=== PATIENT | female | born 1990 | race African-American/Black ===

== ENCOUNTER 2017-02-15 11:08 | Emergency (ER) | payer OTHER ==
--- NOTE | ~2017-02-15 | CT4 ---
[facility] A Service of [facility] RADIOLOGY TEXT RESULTS PATIENT: IRENE HODGE LOCATION: SED : [birth year] UNIT #: [id number] AGE: [address]: Kelli Gagnon MD SEX: F ORDER DR: [id number] [place] [id number] E MR#: [id number] #: [id number] NAME: IRENE HODGE : 1990 SEX: F STUDY DATE/TIME: 02/15/2017 12:42 UNIT: SED ROOM: STUDY DESCRIPTION: CT Abd and Pelv Wo Cont Attending Physician: Kelli Gagnon M.D. Ordering Physician: Kelli Gagnon M.D. Primary Care Physician: No Primary Care Physician MEDICAL IMAGING REPORT This report is preliminary unless electronic signature is present. EXAM CT abdomen and pelvis, noncontrast, kidney stone protocol, 02/15/2017 HISTORY 26-year-old female in the ED complaining of 2-day history of right lower quadrant abdomen pain. TECHNIQUE CT examination of the abdomen and pelvis was performed without oral or IV contrast using kidney stone protocol. This CT exam was performed with one or more of the following radiation dose reduction techniques: automatic exposure control, adjustment of mA and/or kV according to patient size, and iterative reconstruction. FINDINGS ABDOMEN: No radiopaque stone material is seen within the kidneys, ureters, or urinary bladder. No evidence of urinary obstruction. Liver, pancreas and spleen are normal in size and appearance. Nondistended gallbladder. No bile duct dilatation. Small bowel and colon are normal in caliber and appearance, as imaged. The appendix is normal. PELVIS: Uterus, ovaries, bladder and rectum are within normal limits. Bilateral tubal ligation clips. No inguinal hernia or abdominal wall hernia. Limited lung base images show no active disease in the lower chest. IMPRESSION 1. Negative CT examination of the abdomen and pelvis without contrast. No visible nephrolithiasis or evidence of urinary obstruction. [facility] A Service of [facility] RADIOLOGY TEXT RESULTS PATIENT: IRENE HODGE LOCATION: SED : 92 UNIT #: [id number] AGE: [address]: Kelli Gagnon MD SEX: F ORDER DR: 2. The appendix is normal. Dictated by... Justin Tao M.D. THIS IS AN ELECTRONICALLY VERIFIED REPORT Justin Tao M.D. at 02/15/2017 3:25 PM GREGORY/sarai TD: 02/15/2017 13:48 JOB #: [id number] MEDICAL IMAGING REPORT Page 1 of 1
[2017-02-15 11:17] LABS: URINE SOURCE CLEAN CATCH
[2017-02-15 11:20] LABS: MICRO INDICATED? NO; URINE APPEARANCE CLEAR; URINE BILIRUBIN NEG (NEG); URINE BLOOD NEG (NEG); URINE COLOR YELLOW; URINE GLUCOSE NEG (NORM); URINE KETONE NEG (NEG); URINE LEUKOCYTE ESTERASE NEG (NEG); URINE NITRATE NEG (NEG); URINE PROTEIN NEG (NEG); URINE SPECIFIC GRAVITY 1.025 (1.003-1.035); URINE UROBILINOGEN 0.2 MG/DL (NORM)
[2017-02-15 12:07] LABS: BASOPHIL# 0.1 X10e3 (0-0.3); BASOPHIL% 0.8 % (0-2.5); EOSINOPHIL# 0.4 X10e3 (0-0.7); EOSINOPHIL% 4.6 % (0.0-7.0); HEMATOCRIT 36.8 % (35.0-45.0); HEMOGLOBIN 11.7 gm/dL (12.0-16.0); LYMPHOCYTE% 23.3 % (17.0-45.0); MEAN CELL VOLUME 83.7 FL (83-96); MEAN CORPUSCULAR HEMOGLOBIN 26.5 PG (28-34); MEAN CORPUSCULAR HGB CONC 31.7 g/dL (30-36); MEAN PLATELET VOLUME 8.2 FL (6.5-11.5); MONOCYTE# 0.7 X10e3 (0-1.0); MONOCYTE% 7.7 % (3.0-12.0); NEUTROPHIL# 5.4 X10e3 (1.5-7.1); NEUTROPHIL% 63.6 % (40-75); PLATELET COUNT 234 X10e3 (140-420); RED CELL DISTRIBUTION WIDTH 15.8 % (11.0-15.5); WHITE BLOOD COUNT 8.5 X10e3 (4.0-10.5)
[2017-02-15 12:15] LABS: DIFF IND NO
[2017-02-15 12:30] LABS: BILIRUBIN, DIRECT 0.1 mg/dL (0.0-0.2); BILIRUBIN,INDIRECT 0.9 mg/dL (0.0-0.9); BUN/CREATININE RATIO 11.66; CREATININE SERUM 0.6 mg/dL (0.6-1.4); GLOM FILT RATE Estimated 147.9 mL/min (>60); POTASSIUM 3.9 mmol/L (3.5-5.1); PROTEIN TOTAL SERUM 7.7 g/dL (6.0-8.3)
[2017-02-19 23:16] LABS: CHLAMYDIA TRACH Not Detected (Not Detected); N GONOR Not Detected (Not Detected)
== END 2017-02-15 14:39 | disposition home or self-care (01) ==
LOC: SED 11:08
PROVIDERS: Student in an Organized Health Care Education/Training Program
DX: N76.0 Acute vaginitis (principal); M54.9 Dorsalgia, unspecified; F17.200 Nicotine dependence, unspecified, uncomplicated; J45.909 Unspecified asthma, uncomplicated; Z98.51 Tubal ligation status
CPT/HCPCS: 36415; 74176; 80048; 80076; 81003; 83690; 84703; 85025; 87491; 87591; 87808; 87905; 96374; 96375; 99284; J2270; J2405